=== PATIENT | male | born 1985 | race Caucasian/White ===

== ENCOUNTER 2018-07-13 19:50 | Emergency (ER) | payer OTHER ==
[~2018-07-13 19:50] MED LIST: CLONIDINE0.1 MG PO; ZOFRAN 4 MG TABL4 MG PO
== END 2018-07-13 21:01 | disposition admitted as inpatient to this hospital (09) ==
LOC: ERH 19:50
DX: R07.9 Chest pain, unspecified (principal); M54.9 Dorsalgia, unspecified
CPT/HCPCS: 93005; 93010; 99281